=== PATIENT | male | born 1990 | race Caucasian/White ===

== ENCOUNTER 2016-08-11 15:39 | Emergency (ER) | payer OTHER ==
[2016-08-11] MEDS ORDERED: ASPIRIN PO ONE (16:04)
[2016-08-11] MEDS ORDERED: TORADOL 30 MG VIAL IVP STA (16:04)
--- NOTE | 2016-08-11 16:08 | DR.GENAD ---
HPI - PCP Primary Care Physician: NFD - Complaint/Symptoms Chief Complaint Doctors Comments: Patient complains of xiphoid chest pain and right sided chest pain for the past year but got worst the last three days with the main worst on movement and deep breathing. States he went to the hospital in [place] once for the pain but they were to busy judging him for his drug history that they did not tell him a cause of his pain. 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 He is not going for rehab but states he is doing it by himself with support from friends. States he has been having night sweats but denies fever or chills today. He denies cold or cough. He denies alcohol or tobacco use. He denies any recent trauma. Chief Complaint:: PT C/O SEVERE RIGHT SIDED CHEST PAIN THAT HAS BEEN GOING ON FOR "A WHILE" BUT TODAY PT STATES SHE WAS AGGITATED AND WENT TO [employer] SOMETHING AND THE PAIN HIT AND IT WAS SO BAD HE FELL TO THE GROUND IN PAIN. - Nurses notes reviewed Nurses Notes Review: Yes - Source History Provided: Patient - Mode of Arrival Mode of Arrival: Ambulatory - Timing Onset of Chief Complaint: 08/11/16 Came on: Gradually - Duration Duration: Intermittent How lon Duration: Days - Location Location: xiphoid chest - Severity Severity: Moderate, Severe - Modifying Factors Worsens:: movement and deep breathing Improves:: nothing PMH - PMH Past Medical History: No Past Surgical History: No - Family History History of Family Medical Conditions: No - Social History Type of Tobacco Use: Cigarettes How many years tobacco product used: 12 Does any household member use tobacco: Yes Alcohol Use: Rarely Do you use any recreational Drugs:: Yes (THC AND METH) Lives With: Family Lives Where: Home - infectious screening In the last 2 months have you had wt loss of >10#?: NO Have you had fever, night sweats or hemotysis?: No Have you traveled outside the country in the last 6 months?: No Isolation: Standard ROS - Review of Systems Constitutional: No Symptoms Reported. negative: See HPI, Chills, Diaphoresis, Fever, Malaise, Weakness, Irritable, Fatigue, Loss of Appetite, Other Eyes: No Symptoms Reported. negative: See HPI, Eye Pain, Blurred Vision, Tearing, Discharge, Photophobia, Diplopia, Other ENTM: No Symptoms Reported, Nose Congestion Respiratoy: No Symptoms Reported. negative: See HPI, Productive Cough, Non- Productive Cough, Moist Cough, Dry Cough, Hacking Cough, Barking Cough, Brassy Cough, Orthopnea, Short of Breath, Stridor, Wheezing, Hemoptysis, Other Cardiovascular: Chest Pain. negative: No Symptoms Reported, See HPI, Edema, Palpitations, Syncope, Cyanosis, Skin Mottling, Other Gastrointestinal/Abdominal: No Symptoms Reported. negative: See HPI, Abdominal Pain, Constipation, Diarrhea, Nausea, Vomiting, Food Intolerance, Other Genitourinary: No Symptoms Reported Neurological: No Symptoms Reported Musculoskeletal: No Symptoms Reported Hematologic/Lymphatic: No Symptoms Reported Endocrine: No Symptoms Reported Psychiatric: No Symptoms Reported PE - Vital Signs Vitals: Temperature 98.5 F Pulse Rate [Right Radial] 65 Pulse Rate 75 Respiratory Rate 18 Blood Pressure [Right Arm] 144/72 Blood Pressure 161/84 O2 Sat by Pulse Oximetry 100 - General Limitations: No Limitations General Appearance: Alert, In Distress (moderate) - Head Head Exam: Normal Inspection, Atraumatic, Normocephalic - Eyes Eye exam: Normal Appearance, PERRL, EOMI, Scleral Icterus. negative: Conjunctival Injection, Nystagmus, Miosis, Mydrasis, Periorbital Swelling, Periorbital Tenderness, Other - ENT ENT Exam: Normal Exam, Normal Oropharynx, Normal External Ear Exam, Mucous Membranes Moist, TM's Normal Bilaterally External Ear Exam: Normal External Inspection TM/Canal Exam: Bilateral Normal Nose Exam: Normal Nose Exam Mouth Exam: Normal Inspection Throat Exam: Normal Inspection - Neck Neck Exam: Normal Inspection, Full ROM, Trachea Midline. negative: Tenderness, Meningismus, Lymphadenopathy, Thyromegaly, Other - Chest Chest Inspection: Normal Inspection, Symmetric Chest Wall Rise - Respiratory Respiratory Exam: Normal Lung Sounds Bilat Respiratory Exam: Bilateral Clear to Auscultation - Cardiovascular Cardiovascular Exam: Regular Rate, Normal Rhythm, Normal Heart Sounds - Abdominal Exam Abdominal Exam: Normal Inspection, Normal Bowel Sounds, Soft. negative: Distention, Tenderness, Guarding, Rebound, Rigidity, Dimnished Bowel Sounds, Hyperactive Bowel Sounds, Hypoactive Bowel Sounds, Organomegaly, Trauma, Incision, Ascites, Mass, Bruit, Pulsatile Mass, Hernia, Other Abdominal Tenderness: negative: RUQ, RLQ, LUQ, LLQ, Epigastrium, Suprapubic, Diffuse, Mild, Moderate, Severe, Other - Extremities Extremities Exam: Normal Inspection, Full ROM, Normal Capillary Refill. negative: Tenderness, Edema, Joint Swelling, Calf Tenderness, Other - Back Back Exam: Normal Inspection, Full ROM, Tenderness. negative: (R) CVA Tenderness, (L) CVA Tenderness, Muscle Spasm, Paraspinal Tenderness, Vertebral Tenderness, Rashes, (R) Sciatic Notch Tenderness, (L) Sciatic Notch Tendern, (R ) Straight Leg Raise, (L) Straight Leg Raise, Other - Neurologic Neurological Exam: Alert, Oriented X3, CN II-XII Intact, Normal Gait, Reflexes Normal - Psychiatric Psychiatric Exam: Normal Affect, Normal Mood - Skin Skin Exam: Warm, Dry, Intact, Normal Color ROR - Labs Reviewed Laboratory Results Reviewed?: Yes (all labs and x-ray results reviewed and discussed with robin) Result Diagrams: 08/11/16 16:25 08/11/16 16:25 Laboratory: WBC 8.5 X10^3/uL (3.6-10.0) 08/11/16 16:25 RBC 5.23 X10^6/uL (4.7-6.0) 08/11/16 16:25 Hgb 15.3 g/dL (13.5-18.0) 08/11/16 16:25 Hct 45.1 % (42.0-54.0) 08/11/16 16:25 MCV 86.2 fL (80.0-100.0) 08/11/16 16:25 MCH 29.2 pg (27.0-34.0) 08/11/16 16:25 MCHC 33.9 g/dL (33.0-35.0) 08/11/16 16:25 RDW 13.1 % (11.6-16.5) 08/11/16 16:25 Plt Count 242 X10^3/uL (150.0-450.0) 08/11/16 16:25 MPV 7.8 fL (7.4-11.0) 08/11/16 16:25 Neut % 63.1 % (42.0-75.0) 08/11/16 16:25 Lymph % 25.3 % (21.0-51.0) 08/11/16 16:25 [place] % 9.6 % (0.0-13.0) 08/11/16 16:25 Eos % 1.2 % (0.9-2.9) 08/11/16 16:25 Baso % 0.8 % (0.2-1.0) 08/11/16 16:25 Neut # 5.3 x10^3/uL (2.2-4.8) H 08/11/16 16:25 Lymph # 2.1 X10^3/uL (1.3-2.9) 08/11/16 16:25 [place] # 0.8 x10^3/uL (0.3-0.8) 08/11/16 16:25 Eos # 0.1 x10^3/uL (0.0-0.2) 08/11/16 16:25 Baso # 0.1 X10^3/uL (0.0-0.1) 08/11/16 16:25 Absolute Nucleated RBC 0.0 /100WBC 08/11/16 16:25 INR Target Range - 08/11/16 16:25 INR 1.06 (0.8-1.3) 08/11/16 16:25 PTT 29.2 SECONDS (22.9-36.5) 08/11/16 16:25 PTT Comment - 08/11/16 16:25 D-Dimer < 100 ng/mL (0-400) 08/11/16 16:25 Sodium 144 mmol/L (136-145) 08/11/16 16:25 Corrected Sodium TNP 08/11/16 16:25 Potassium 3.8 mmol/L (3.5-5.1) 08/11/16 16:25 Chloride 107 mmol/L (98-107) 08/11/16 16:25 Carbon Dioxide 27.8 mmol/L (21-32) 08/11/16 16:25 BUN 11 mg/dL (7-18) 08/11/16 16:25 Creatinine 1.05 mg/dL (0.70-1.30) 08/11/16 16:25 Est GFR (MDRD) Af Amer > 60 (>60) 08/11/16 16:25 Est GFR (MDRD) Non-Af > 60 (>60) 08/11/16 16:25 Glucose 70 mg/dL (65-99) 08/11/16 16:25 Calcium 8.6 mg/dL (8.5-10.1) 08/11/16 16:25 Corrected Calcium TNP 08/11/16 16:25 Magnesium 1.9 mg/dL (1.7-2.9) 08/11/16 16:25 Total Bilirubin 0.40 mg/dL (0.2-1.0) 08/11/16 16:25 AST 10 Units/L (15-37) L 08/11/16 16:25 ALT 30 Units/L (12-78) 08/11/16 16:25 Alkaline Phosphatase 90 Units/L (46-116) 08/11/16 16:25 Creatine Kinase 220 Units/L (39-308) 08/11/16 16:25 CK-MB (CK-2) 1.1 ng/mL (0-4.0) 08/11/16 16:25 CK/CKMB % Calc 0.5 % (<4) 08/11/16 16:25 Troponin I < 0.02 ng/mL (0-1.5) 08/11/16 16:25 Total Protein 7.4 g/dL (6.4-8.2) 08/11/16 16:25 Albumin 3.9 g/dL (3.4-5.0) 08/11/16 16:25 Globulin 3.5 g/dL (2.5-4.5) 08/11/16 16:25 Albumin/Globulin Ratio 1.1 Ratio (1.1-2.1) 08/11/16 16:25 Urine Opiates Screen Negative (NEG=<300) 08/11/16 16:34 Urine Methadone Screen Negative (NEG=<300) 08/11/16 16:34 Ur Barbiturates Screen Negative (NEG=<200) 08/11/16 16:34 Ur Phencyclidine Scrn Negative (NEG=<25) 08/11/16 16:34 Ur Amphetamines Screen Positive (NEG=<1000) 08/11/16 16:34 U Benzodiazepines Scrn Negative (NEG=<200) 08/11/16 16:34 Urine Cocaine Screen Negative (NEG=<300) 08/11/16 16:34 U Marijuana (THC) Screen Positive (NEG=<50) A 08/11/16 16:34 H. pylori IgG Antibody Negative (NEGATIVE) 08/11/16 16:25 - XRAY XRAY Interpreted by: Radiologist (CXR: no acute ccardiopulmonary disease.) - Diagnosis Discharge Problem: Chest pain of uncertain etiology, Chest wall pain, Marijuana abuse in remission - Discharge Plan Disposition: HOME, SELF-CARE Condition: Stable Prescriptions: Ibuprofen [MOTRIN TAB 800 MG *] 800 mg PO BID PRN #40 tab PRN Reason: Pain/Inflammation - Follow ups/Referrals Follow ups/Referrals: NFD,None [STAFF PHYSICIAN] - 3 days - Instructions Instructions: Nonspecific Chest Pain, Chest Wall Pain, Cannabis Use Disorder
[2016-08-11 16:09] VITALS: BMI 27.8
[2016-08-11] MEDS ORDERED: TORADOL 30 MG VIAL IM ONE (16:14)
[2016-08-11] MEDS ORDERED: TORADOL 30 MG VIAL ONE (16:15)
[2016-08-11] MEDS ORDERED: ASPIRIN ONE (16:15)
--- NOTE | 2016-08-11 16:20 | RAD ---
HISTORY: Chest pain Study: Portable chest Comparison: None Findings: The trachea is midline. The cardiac silhouette is unremarkable. The lungs are clear without focal infiltrate or effusion. The bony thorax is unremarkable. IMPRESSION: 1. No acute cardiopulmonary disease. Reported By:
[2016-08-11 16:30] LABS: BASOPHILS # (AUTO) 0.1 X10^3/uL (0.0-0.1); BASOPHILS % (AUTO) 0.8 % (0.2-1.0); EOSINOPHILS # (AUTO) 0.1 x10^3/uL (0.0-0.2); EOSINOPHILS % (AUTO) 1.2 % (0.9-2.9); HEMATOCRIT 45.1 % (42.0-54.0); HEMOGLOBIN 15.3 g/dL (13.5-18.0); LYMPHOCYTES # (AUTO) 2.1 X10^3/uL (1.3-2.9); LYMPHOCYTES % (AUTO) 25.3 % (21.0-51.0); MEAN CORPUSCULAR HEMOGLOBIN 29.2 pg (27.0-34.0); MEAN CORPUSCULAR HGB CONC 33.9 g/dL (33.0-35.0); MEAN CORPUSCULAR VOLUME 86.2 fL (80.0-100.0); MEAN PLATELET VOLUME 7.8 fL (7.4-11.0); MONOCYTES # (AUTO) 0.8 x10^3/uL (0.3-0.8); MONOCYTES % (AUTO) 9.6 % (0.0-13.0); NEUTROPHILS # (AUTO) 5.3 x10^3/uL (2.2-4.8); NEUTROPHILS % (AUTO) 63.1 % (42.0-75.0); PLATELET COUNT 242 X10^3/uL (150.0-450.0); RED BLOOD COUNT 5.23 X10^6/uL (4.7-6.0); RED CELL DISTRIBUTION WIDTH 13.1 % (11.6-16.5); WHITE BLOOD COUNT 8.5 X10^3/uL (3.6-10.0)
[2016-08-11 16:56] LABS: D DIMER < 100 ng/mL (0-400)
[2016-08-11 16:57] LABS: BLOOD UREA NITROGEN 11 mg/dL (7-18); CALCIUM 8.6 mg/dL (8.5-10.1); CARBON DIOXIDE 27.8 mmol/L (21-32); CHLORIDE 107 mmol/L (98-107); CREATININE 1.05 mg/dL (0.70-1.30); GLUCOSE 70 mg/dL (65-99); SODIUM 144 mmol/L (136-145); TROPONIN I < 0.02 ng/mL (0-1.5); eGFR BLACK RACES > 60 (>60); eGFR NON BLACK RACES > 60 (>60)
[2016-08-11 17:12] LABS: ALANINE AMINOTRANSFERASE 30 Units/L (12-78); ALBUMIN 3.9 g/dL (3.4-5.0); ALKALINE PHOSPHATASE 90 Units/L (46-116); ASPARTATE AMINO TRANSFERASE 10 Units/L (15-37); CKMB % 0.5 % (<4); CREATINE KINASE 220 Units/L (39-308); CREATINE KINASE MB 1.1 ng/mL (0-4.0); MAGNESIUM 1.9 mg/dL (1.7-2.9); TOTAL PROTEIN 7.4 g/dL (6.4-8.2)
[2016-08-11 17:29] VITALS: BP 138/73
[2016-08-11] MEDS ORDERED: PREDNISONE TAB 20 MG PO ONE ×2 (17:31→17:33)
== END 2016-08-11 17:38 | disposition home or self-care (01) ==
LOC: ER 15:57
DX: R07.89 Other chest pain (principal); F12.21 Cannabis dependence, in remission
CPT/HCPCS: 36415; 71010; 80053; 80307; 82550; 82553; 83735; 84484; 85025; 85378; 85610; 85730; 86677; 93005; 93010; 96372; 99283; G0434; J1885; J7506